=== PATIENT | male | born 1990 ===

== ENCOUNTER → 2016-09-11 | Day surgery (SDC) | payer OTHER ==
[~2016-09-11] VITALS: Ht 170.2 cm; Wt 108.9 kg
[~2016-09-11] MED LIST: Depo-Medrol 80mg Vial IARTIC ONE; NKM
--- NOTE | 2016-09-11 08:49 | Pre-Procedure Note/Attestation ---
Pre-Procedure Note/Attestation Complete Prior to Procedure Planned Procedure: bilateral Procedure Narrative: Bilateral intra-articular facet injections, L5-S1. Indications for Procedure Pre-Operative Diagnosis: Lumbosacral spondylosis Attestation I attest that I discussed the nature of the procedure; its benefits; risks and complications; and alternatives (and the risks and benefits of such alternatives ), prior to the procedure, with the patient (or the patient's legal career services representative). I attest that, if there was a reasonable possibility of needing a blood transfusion, the patient (or the patient's legal career services representative) was given the [facility] standardized written summary, pursuant to the Clint Umbarger Blood Safety Act ([place] Health and Safety Code # 1645, as amended). I attest that I re-evaluated the patient just prior to the surgery and that there has been no change in the patient's H&P, except as documented below: MATIAS SALMERON M.D. Sep 11, 2016 08:48
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
[2016-09-11 09:34] VITALS: BP 132/71
--- NOTE | 2016-09-11 09:54 | Brief Operative Note ---
Immediate Post Operative Note Operative Note Chief Complaint: Lower back pain Pre-op Diagnosis: Lumbosacral spondylosis Procedure: Bilateral L5-S1 intra-articular facet injections under fluoroscopic guidance. Post-op Diagnosis: Lumbosacral spondylosis Post-op Diagnosis: same as pre-op Findings: consistent w/pre-op dx studies Surgeon: Matias Thomas MD Door Slinger: None Additional Surgeons: none Anesthesiologist: none Anesthesia: local Specimen: none Complications: none Condition: stable Fluids: none Estimated Blood Loss: none Drains: none Packing: none Tourniquet time: 0 - min Implant(s) used?: MATIAS Sims M.D. Sep 11, 2016 09:54
--- NOTE | 2016-09-11 09:56 | Discharge Summary ---
Discharge Summary Hospital Course Date of Admission 09/11/16 Date of Discharge 09/11/16 Admitting Diagnosis Lumbosacral spondylosis Reason for Hospitalization: short stay HPI Jose Meng is a 26 year old male who was admitted on for Bilateral Facet Pain Consultations none Procedures bilateral L5-S1 intra-articular facet injections Hospital Course short stay Discharge Condition Upon Discharge: stable Discharge Disposition Patient was discharged to home. Discharge Diagnoses: (1) Lumbosacral spondylosis Discharge Instructions Discharge Instructions Follow up with: Matias Salmeron MD Diet: regular Activity: okay to shower For Surgical Patients Dressing Care: may change May shower: Yes Contact your physician for: bleeding, pain, tenderness, redness, swelling, yellowish discharge in the op. site MATIAS SALMERON M.D. Sep 11, 2016 09:56
[2016-09-11 10:00] VITALS: BP 133/68
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
== END | disposition home or self-care (01) ==
LOC: SDS 09:09
DX: M47.897 Other spondylosis, lumbosacral region (principal)
CPT/HCPCS: 64493; 77003; J1040; Q9967; 64483; 64484